=== PATIENT | male | born 1930 | race Caucasian/White ===

== ENCOUNTER 2018-01-26 09:22 | Emergency (ER) | payer MEDICARE ==
[~2018-01-26] VITALS: Ht 172.7 cm; Wt 56.3 kg
[~2018-01-26 09:22] MED LIST: ASPI81TA82 PO; AZIT250T74 PO; CEFT500T PO; DUONSOL2 NEB; ENSULIQ8 PO; FLOR250C PO; GLUCTAB6 PO; REME15TA PO; TAB-TAB PO
[2018-01-26 09:28] VITALS: BP 152/64; PULSE 90; RESP 16; TEMP 98.5; O2SAT 96
[2018-01-26] MEDS ORDERED: CEPH-460 PO (09:45)
--- NOTE | 2018-01-26 09:46 | PD ---
HPI Chief Complaint: Skin Problem Time Seen by Provider: 09:32 Travel History International Travel<30 days: No Contact w/Intl Traveler<30days: No Traveled to known affect area: No History of Present Illness HPI 87-year-old elderly male presents to the emergency department for evaluation of a skin tear to his left elbow. Patient states that he lost his balance and fell approximately 3 weeks ago. He states that he normally has to use his walker, but is not using his walker. He got out of the bathtub and slipped and fell. He denies any loss of consciousness. No neck pain or back pain. No chest pain or abdominal pain. No vomiting. He has been ambulatory since the fall without issue. His only complaint today is a skin tear to the left elbow that is not healing. No fevers or chills. He has no pain at this time. He is here with his son at bedside. No exacerbating or alleviating factors. Mild severity. PFSH Past Medical History Arthritis: No Asthma: No Autoimmune Disease: No Heart Rhythm Problems: No Cancer: No High Cholesterol: No Chemotherapy: No Chest Pain: No Congestive Heart Failure: No COPD: Yes Cerebrovascular Accident: No Diabetes: No Endocrine: No GERD: No Genitourinary: No Hiatal Hernia: No Kidney Stones: Yes Musculoskeletal: No Neurologic: Yes (TREMORS) Psychiatric: No Reproductive: No Respiratory: No Migraines: No Radiation Therapy: No Renal Failure: No Seizures: No Sickle Cell Disease: No Sleep Apnea: No Thyroid Disease: No Ulcer: No Past Surgical History Abdominal Surgery: No AICD: No Arteriovenous Shunt: No Body Medical Devices: brain stimulator Cardiac Surgery: No Ear Surgery: No Endocrine Surgery: No Eye Surgery: Yes (CARTARACT) Genitourinary Surgery: Yes (KIDNEY STONES REMOVED) Gynecologic Surgery: No Insulin Pump: No Joint Replacement: No Oral Surgery: Yes (IMPLANTS BEING PLACED) Pacemaker: No Thoracic Surgery: No Other Surgery: Yes (BRAIN STIMULATOR) Social History Alcohol Use: No Tobacco Use: Yes Substance Use: No Allergies-Medications (Allergen,Severity, Reaction): Coded Allergies: No Known Allergies (Unverified Adverse Reaction, Unknown, 01/26/18) Reported Meds & Prescriptions Reported Meds & Active Scripts Active Review of Systems Except as stated in HPI: all other systems reviewed are Neg Physical Exam Narrative GENERAL: Well-nourished, well-developed elderly male patient, ambulatory with a walker. Afebrile. SKIN: Focused skin assessment warm/dry. Patient is possibly 3 cm x 3 cm superficial skin tear to the left elbow with mild purulent drainage. No surrounding erythema. HEAD: Normocephalic. Atraumatic. ENT: Mucosa pink and moist. No erythema or exudates. No uvular edema. No uvular, palatal, or tonsillar deviation. Airway patent. Nasal turbinates appear normal without nasal blood, purulent drainage or septal hematoma. Bilateral tympanic membranes clear without erythema or perforation. EYES: No scleral icterus. No injection or drainage. NECK: Supple, trachea midline. No JVD or lymphadenopathy. CARDIOVASCULAR: Regular rate and rhythm without murmurs, gallops, or rubs. RESPIRATORY: Breath sounds equal bilaterally. No accessory muscle use. Lung sounds are clear to auscultation. GASTROINTESTINAL: Abdomen soft, non-tender, nondistended. MUSCULOSKELETAL: No cyanosis, or edema. BACK: Nontender without obvious deformity. No CVA tenderness. No midline spinal tenderness. Data Data Last Documented VS Vital Signs Date Time Temp Pulse Resp B/P (MAP) Pulse Ox O2 Delivery O2 Flow Rate FiO2 01/26/18 09:28 98.5 90 16 152/64 (93) 96 Orders Orders Wound Culture And Gram Stain (01/26/18 09:42) Wound Care (01/26/18 09:42) MDM Medical Decision Making Medical Screen Exam Complete: Yes Emergency Medical Condition: Yes Medical Record Reviewed: Yes Differential Diagnosis Skin tear versus cellulitis versus abrasion Narrative Course 87-year-old male presents to the emergency department for evaluation of a skin tear to his left elbow that occurred approximately 3 weeks ago. He does appear well on exam. He denies any pain. There does appear to be a mild infection to the wound. Wound culture is taken. Wound care is completed in the emergency department. He will be discharged prescription for Keflex. He is encouraged to do proper wound care. He is to follow with his primary care physician and return here for any acute worsening of symptoms. The patient was discharged in stable condition with instructions, including return instructions and follow up instructions. Diagnosis Primary Impression: Wound infection Additional Impression: Skin tear of left elbow without complication Qualified Codes: S51.012A - Laceration without foreign body of left elbow, initial encounter Referrals: Primary Care Physician call for appointment Patient Instructions: General Instructions, Skin Tear (ED) Departure Forms: Tests/Procedures Additional Instructions: Clean skin tear twice daily with soap and water apply [id number] antibiotic ointment. Keep clean and dry. Take antibiotic as directed until gone. Follow-up with a primary care physician. Return to the emergency department for any acute worsening of symptoms. Med/Other Pt SpecificInfo: Prescription(s) given Scripts Cephalexin (Keflex) 500 Mg Capsule 500 MG PO Q6H for Infection for 10 Days, #40 CAP 0 Refills Prov: Diane Yi 01/26/18 Disposition: 01 DISCHARGE HOME Condition: Stable Diane Yi Jan 26, 2018 09:46
[2018-01-26] MEDS ORDERED: PRIM50TA5 PO (10:09)
[2018-01-26] MEDS ORDERED: TETANUS/DIPHTHERIA TOXOID ADULT 0.5 ML VIAL IM ONE (10:15)
== END 2018-01-26 10:44 | disposition home or self-care (01) ==
LOC: PHED 09:22
DX: S51.012D Laceration without foreign body of left elbow, subsequent encounter (principal); J44.9 Chronic obstructive pulmonary disease, unspecified; W01.0XXD Fall on same level from slipping, tripping and stumbling without subsequent striking against object, subsequent encounter; Z87.442 Personal history of urinary calculi; Z23 Encounter for immunization; Z72.0 Tobacco use
CPT/HCPCS: 87070; 90471; 90714